=== PATIENT | male | born 1940 | race Caucasian/White ===

== ENCOUNTER 2016-10-06 11:43 | Emergency (ER) | payer MEDICARE, BC ==
[2016-10-06] MEDS ORDERED: Sodium Chloride 0.9% 10 ML Syringe FLUSH PRN (11:56)
[2016-10-06] MEDS ORDERED: Nitroglycerin 0.4 MG Tab.SL SL ONE (12:01)
--- NOTE | 2016-10-06 12:09 | EDM.PDOC ---
ED HISTORY OF PRESENT ILLNESS - General Chief Complaint: Chest Pain Stated Complaint: HEART ATTACK Time Seen by Provider: 10/06/16 11:55 Source of Information: Reports: Patient, Family, RN, RN notes reviewed History Limitations: Reports: No limitations - History of Present Illness INITIAL COMMENTS - FREE TEXT/NARRATIVE: Patient presents to the ED at [facility] complaining of chest pain that started around 10:00am today. Patient states he was sitting watching TV when the chest pain started. He did take 325 mg of ASA prior to arrival. Patient has a history of CABG 2003. Patient states he has a slight headache. No GI problems. Patient denies any SOB or cough. Symptom Onset Date: 10/06/16 Symptom Onset Time: 10:00 Timing/Duration: Reports: Improving Severity: mild Location, General: Reports: chest Quality: Reports: Pressure - Related Data Allergies/ADRs: Allergies Allergy/AdvReac Type Severity Reaction Status Date / Time Iodinated Contrast Media - Allergy Other Verified 10/06/16 12:18 Oral and Home Meds: Home Meds Aspirin [Ecotrin] 81 mg PO DAILY 10/06/16 [History] Cholecalciferol (Vitamin D3) [Vitamin D3] 1,000 units PO DAILY 10/06/16 [History ] Cyanocobalamin (Vitamin B-12) [Vitamin B-12] 250 mcg PO DAILY 10/06/16 [History] Lisinopril 2.5 mg PO DAILY 10/06/16 [History] Metoprolol Tartrate [Lopressor] 12.5 mg PO BID 10/06/16 [History] Multivitamin [One Daily] 1 tab PO DAILY 10/06/16 [History] Naproxen Sodium [Aleve] 220 mg DAILY 10/06/16 [History] Simvastatin [Zocor] 20 mg PO BEDTIME 10/06/16 [History] metFORMIN [Glucophage] 250 mg BID 10/06/16 [History] ED ROS GENERAL - Review of Systems Review Of Systems: See Below Constitutional: Denies: fever, chills, weakness Respiratory: Denies: Shortness of Breath, Cough Cardiovascular: Reports: Chest pain. Denies: Lightheadedness, Palpitations GI/Abdominal: Denies: Abdominal pain, Diarrhea, Nausea, Vomiting Skin: Reports: no symptoms Neurological: Reports: No Symptoms. Denies: Dizziness, Headache, Numbness, Paresthesia, Tingling ED EXAM, GENERAL - Physical Exam Exam: See Below Exam Limited By: No limitations General Appearance: alert, no apparent distress Respiratory/Chest: no respiratory distress, lungs clear, normal breath sounds Cardiovascular: regular rate, rhythm, other (+2 LE edema bilateral) Peripheral Pulses: 1+: posterior tibial (L), posterior tibial (R), dorsalis pedis (L), dorsalis pedis (R) GI/Abdominal: normal bowel sounds, soft, non tender Neurological: alert, oriented Skin Exam: Warm, Dry, Intact, Normal color, No rash EKG INTERPRETATION EKG Date: 10/06/16 Time: 11:51 Rhythm: NSR Rate (beats/min): 75 [place]: normal P-wave: present QRS: normal ST-T: depressed QT: normal [place]/PQ Interval: 0.16 Comparison: NA - no prior EKG EKG Interpretation Comments: 1. Sinus Rhythm 2. Moderate IVCD 3. Minimal ST depression Course - Vital Signs Last Recorded V/S: Last Vital Signs Temp 37.0 C 10/06/16 12:00 Pulse 70 10/06/16 12:00 Resp 20 10/06/16 12:00 BP 148/82 H 10/06/16 12:25 Pulse Ox 100 10/06/16 12:00 - Orders/Labs/Meds Orders: Active Orders 24 hr Category Date Time Status Oxygen Therapy Adult [Oxygen Therapy, ED] [RC] Care 10/06/16 12:03 Active ASDIRECTED Chest 2V [CR] Stat Exams 10/06/16 11:56 Taken Sodium Chloride 0.9% [Normal Saline] 1,000 ml Med 10/06/16 12:15 Active IV ASDIRECTED Sodium Chloride 0.9% [Saline Flush] Med 10/06/16 11:56 Active 10 ml FLUSH ASDIRECTED PRN Peripheral IV Insertion Adult [OM.PC] Routine Oth 10/06/16 11:56 Ordered Medication Orders Sodium Chloride (Normal Saline) 1,000 mls @ 30 mls/hr IV ASDIRECTED MONE Sodium Chloride (Saline Flush) 10 ml FLUSH ASDIRECTED PRN PRN Reason: Keep Vein Open Labs: Laboratory Tests 10/06/16 10/06/16 10/06/16 Range/Units 11:55 11:55 11:55 WBC 7.3 (4.0-10.0) x10^3/uL RBC 4.39 L (4.5-6.0) x10^6/uL Hgb 12.4 L (14.0-18.0) g/dL Hct 38.2 L (40.0-52.0) % MCV 87.0 (78.0-93.0) fL MCH 28.2 (26.0-32.0) pg MCHC 32.5 (32.0-36.0) g/dL RDW Coeff of Negro 14.4 (10.0-15.0) % Plt Count 218 (130-400) x10^3/uL Neut % (Auto) 63.7 (50.0-80.0) % Lymph % (Auto) 24.8 L (25.0-50.0) % [place] % (Auto) 7.5 (2.0-11.0) % Eos % (Auto) 3.5 (0.0-4.0) % Baso % (Auto) 0.5 (0.2-1.2) % PT 9.8 L (10.0-12.8) SEC INR 0.9 L (2.0-3.5) Sodium 142 (136-145) mmol/L Potassium 4.3 (3.5-5.1) mmol/L Chloride 105 (98-107) mmol/L Carbon Dioxide 29 (21-32) mmol/L BUN 21 H (7-18) mg/dL Creatinine 1.0 (0.70-1.30) mg/dL Est Cr Clr Drug Dosing 62.70 mL/min Estimated GFR (MDRD) > 60 Glucose 132 H (74-106) mg/dL Calcium 8.5 (8.5-10.1) mg/dL Corrected Calcium 8.74 (8.5-10.1) mg/dL Phosphorus 2.9 (2.6-4.7) mg/dL Magnesium 1.9 (1.8-2.4) mg/dL Total Bilirubin 0.3 (0.2-1.0) mg/dL AST 39 H (15-37) U/L ALT 43 (16-63) U/L Alkaline Phosphatase 57 (46-116) U/L Creatine Kinase 117 (39-308) U/L Creatine Kinase Index 1.8 (0.0-4.0) % CK-MB (CK-2) 2.1 (0.0-3.6) ng/mL POC Troponin I (0.00-0.08) ng/mL B-Natriuretic Peptide (<=125) pg/mL Total Protein 7.4 (6.4-8.2) g/dL Albumin 3.7 (3.4-5.0) g/dL Globulin 3.7 Albumin/Globulin Ratio 1.00 10/06/16 10/06/16 Range/Units 11:55 12:18 WBC (4.0-10.0) x10^3/uL RBC (4.5-6.0) x10^6/uL Hgb (14.0-18.0) g/dL Hct (40.0-52.0) % MCV (78.0-93.0) fL MCH (26.0-32.0) pg MCHC (32.0-36.0) g/dL RDW Coeff of Negro (10.0-15.0) % Plt Count (130-400) x10^3/uL Neut % (Auto) (50.0-80.0) % Lymph % (Auto) (25.0-50.0) % [place] % (Auto) (2.0-11.0) % Eos % (Auto) (0.0-4.0) % Baso % (Auto) (0.2-1.2) % PT (10.0-12.8) SEC INR (2.0-3.5) Sodium (136-145) mmol/L Potassium (3.5-5.1) mmol/L Chloride (98-107) mmol/L Carbon Dioxide (21-32) mmol/L BUN (7-18) mg/dL Creatinine (0.70-1.30) mg/dL Est Cr Clr Drug Dosing mL/min Estimated GFR (MDRD) Glucose (74-106) mg/dL Calcium (8.5-10.1) mg/dL Corrected Calcium (8.5-10.1) mg/dL Phosphorus (2.6-4.7) mg/dL Magnesium (1.8-2.4) mg/dL Total Bilirubin (0.2-1.0) mg/dL AST (15-37) U/L ALT (16-63) U/L Alkaline Phosphatase (46-116) U/L Creatine Kinase (39-308) U/L Creatine Kinase Index (0.0-4.0) % CK-MB (CK-2) (0.0-3.6) ng/mL POC Troponin I 0.00 (0.00-0.08) ng/mL B-Natriuretic Peptide 417 H (<=125) pg/mL Total Protein (6.4-8.2) g/dL Albumin (3.4-5.0) g/dL Globulin Albumin/Globulin Ratio Meds: Medications Generic Name Dose Route Start Last Admin Trade Name Freq PRN Reason Stop Dose Admin Sodium Chloride 1,000 mls @ 30 mls/hr 10/06/16 12:15 Normal Saline IV ASDIRECTED MONE Sodium Chloride 10 ml 10/06/16 11:56 Saline Flush FLUSH ASDIRECTED PRN Keep Vein Open Discontinued Medications Generic Name Dose Route Start Last Admin Trade Name Freq PRN Reason Stop Dose Admin Nitroglycerin 0.4 mg 10/06/16 12:01 Nitrostat SL 10/06/16 12:02 ONETIME ONE Departure - Departure Time of Disposition: 12:51 Disposition: Home, Self-Care 01 Reason for Transfer *Q: Other Condition: good Clinical Impression: Atypical chest pain Instructions: Nonspecific Chest Pain Referrals: Otf Jackson MD [Primary Care Provider] - Forms: ED Department Discharge Additional Instructions: 1. All labs and tests were normal 2. Stay well hydrated and rest 3. See your Primary as symptoms warrant - Problem List Review Problem List Initiated/Reviewed/Updated: Yes - My Orders Last 24 Hours: My Active Orders 10/06/16 11:56 Chest 2V [CR] Stat Sodium Chloride 0.9% [Saline Flush] 10 ml FLUSH ASDIRECTED PRN Peripheral IV Insertion Adult [OM.PC] Routine 10/06/16 12:03 Oxygen Therapy Adult [Oxygen Therapy, ED] [RC] ASDIRECTED 10/06/16 12:15 Sodium Chloride 0.9% [Normal Saline] 1,000 ml IV ASDIRECTED - Assessment/Plan Last 24 Hours: My Active Orders 10/06/16 11:56 Chest 2V [CR] Stat Sodium Chloride 0.9% [Saline Flush] 10 ml FLUSH ASDIRECTED PRN Peripheral IV Insertion Adult [OM.PC] Routine 10/06/16 12:03 Oxygen Therapy Adult [Oxygen Therapy, ED] [RC] ASDIRECTED 10/06/16 12:15 Sodium Chloride 0.9% [Normal Saline] 1,000 ml IV ASDIRECTED
[2016-10-06] MEDS ORDERED: Sodium Chloride 0.9% 1,000 ML IV SCH (12:15)
[2016-10-06 12:42] LABS: CHLORIDE,CL 105 mmol/L (98-107); SODIUM,NA 142 mmol/L (136-145)
[2016-10-06 12:55] VITALS: BP 142/80
== END 2016-10-06 13:00 | disposition home or self-care (01) ==
LOC: VM.ED 11:43
DX: R07.89 Other chest pain (principal); Z91.041 Radiographic dye allergy status; Z79.82 Long term (current) use of aspirin; Z79.84 Long term (current) use of oral hypoglycemic drugs; Z79.899 Other long term (current) drug therapy
CPT/HCPCS: 71020; 80053; 82550; 82553; 83735; 83880; 84100; 84484; 85025; 85610; 96360; 99285; J7030; 93005; 99284-GF